=== PATIENT | female | born 1975 | race African-American/Black ===

== ENCOUNTER 2018-10-15 19:39 | Emergency (ER) | payer OTHER ==
[~2018-10-15] VITALS: Ht 172.7 cm; Wt 59.0 kg
[~2018-10-15 19:39] MED LIST: LORTABELXR PO; NOHOMEMEDICATIONS
[2018-10-15] MEDS ORDERED: VENTOLIN HFA 1818 GM INH (21:26)
[2018-10-15] MEDS ORDERED: PREDNISONE 20 M20 MG PO (21:26)
[2018-10-15 21:28] VITALS: BP 102/69
== END 2018-10-15 21:29 | disposition home or self-care (01) ==
LOC: ER 19:39
DX: J45.901 Unspecified asthma with (acute) exacerbation (principal)

== ENCOUNTER 2018-12-02 01:39 | Emergency (ER) | payer OTHER ==
[~2018-12-02] VITALS: Ht 170.2 cm; Wt 63.5 kg
[~2018-12-02 01:39] MED LIST changes: +PREDNISONE 20 M20 MG PO; +VENTOLIN HFA 1818 GM INH
[2018-12-02] MEDS ORDERED: PREDNISONE 20 M20 MG PO (03:10)
[2018-12-02] MEDS ORDERED: VENTOLIN HFA 1818 GM INH (03:10)
[2018-12-02 03:19] VITALS: BP 92/56
== END 2018-12-02 03:24 | disposition home or self-care (01) ==
LOC: ER 01:39
DX: J45.901 Unspecified asthma with (acute) exacerbation (principal)